=== PATIENT | female | born 1955 | race Caucasian/White ===

== ENCOUNTER 2024-08-31 05:30 | Emergency (ER) | payer MEDICARE, OTHER, SELFPAY ==
[2024-08-31 05:32] VITALS: BP 138/97
[2024-08-31 06:18] VITALS: BMI 23.8
[2024-08-31 06:45] LABS: % Basophils 0.2 % (0-2); % Eosinophils 1.1 % (0-6); % Immature Granulocytes 0.3 % (0-0.5); % Lymphocytes 5.2 % (20.5-51.1); % Monocytes 5.9 % (1.7-9.3); % Neutrophils 87.3 % (42.2-75.2); Absolute Eosinophils 0.1 10^3/uL (0-0.7); Absolute Lymphocytes 0.5 10^3/uL (1.2-3.4); Absolute Monocytes 0.6 10^3/uL (0.1-0.6); Absolute Neutrophils 8.2 10^3/uL (1.4-6.5); Hematocrit 35.5 % (37.0-47.0); Hemoglobin 12.2 g/dL (12.0-16.0); Mean Corp Hgb Conc. 34.4 g/dL (33.0-37.0); Mean Corpuscular Hgb 33.6 pg (27.0-31.0); Mean Corpuscular Volume 97.8 fL (81.0-99.0); Mean Platelet Volume 8.5 fL (7.4-10.4); Nucleated Red Blood Cells % 0 %; Platelet Count 249 10^3/uL (130-400); Red Blood Cell Count 3.63 10^6/uL (4.20-5.40); Red Cell Dist. Width 11.9 % (11.5-14.5); White Blood Cell Count 9.4 10^3/uL (4.8-10.8)
[2024-08-31 06:54] LABS: ALT (SGPT) 21 U/L (0-35); AST (SGOT) 32 U/L (14-36); Albumin 4.4 g/dl (3.5-5.0); Alkaline Phosphatase 64 U/L (38-126); Blood Urea Nitrogen 8 mg/dl (7-17); Calcium 9.8 mg/dl (8.4-10.2); Carbon Dioxide 28 mmol/L (22-30); Chloride 99 mmol/L (98-107); Estimated Creatinine Clearance 72 ml/min; Glucose 128 mg/dl (70-99); Lipase 40 U/L (23-300); Potassium 3.9 mmol/L (3.5-5.1); Sodium 134 mmol/L (135-145); Total Bilirubin 0.8 mg/dl (0.2-1.3); Total Protein 6.7 g/dl (6.3-8.2); eGFR > 60.00
--- NOTE | 2024-08-31 07:38 | ED.GENMED ---
History of Present Illness
General
Chief Complaint: Abdominal Pain
Time Seen by Provider: 08/31/24 07:08
History of Present Illness
History of Present Illness:
69-year-old female presents to the emergency department for evaluation of intractable nausea and vomiting beginning last night. She is 2 days status post right total shoulder replacement performed at [facility]. She was given opiates for pain
control but no antiemetics. Pain is moderate at this time. No fevers or chills
Review of Systems
Review of Systems
Allergies reviewed?: Yes
All Other Systems: ROS reviewed and negative except as documented in HPI and ROS
Phy Exam
Physical Exam
Physical Exam:
GEN: Well appearing, NAD, WDWN
HEENT: Oral mucosa moist, no scleral icterus
Cardiac: Regular rate
Lung: No respiratory distress, no tachypnea
MSK: Aquacel dressing in place over the right shoulder, no obvious erythema
Skin: Good color, no pallor or jaundice, no rashes
Neuro: AO x3, moves all extremities freely
Psych: Calm, cooperative
Course
Orders/Labs/Results
Orders:
Orders
08/31/24 06:16
IV Insert/Care/Rem.- Treatment PRN
08/31/24 06:33
Complete Blood Count/With Diff Urgent
Comprehensive Metabolic Panel Urgent
Lipase Urgent
08/31/24 07:38
0.9% Sodium Chloride 1000 ml [Nss] 1,000 ml IV BOLUS
Ondansetron Injectable [Zofran] 4 mg IV NOW STA
08/31/24 08:39
Oxycodone [Roxicodone] 5 mg PO NOW STA
Abnormal Lab Results
08/31/24
06:33
RBC 3.63 L 10^6/uL
(4.20-5.40)
Hct 35.5 L %
(37.0-47.0)
MCH 33.6 H pg
(27.0-31.0)
Absolute Neuts (auto) 8.2 H 10^3/uL
(1.4-6.5)
Absolute Lymphs (auto) 0.5 L 10^3/uL
(1.2-3.4)
Neutrophils % 87.3 H %
(42.2-75.2)
Lymphocytes % 5.2 L %
(20.5-51.1)
Sodium 134 L mmol/L
(135-145)
Creatinine 0.5 L mg/dL
(0.6-1.0)
Glucose 128 H mg/dl
(70-99)
08/31/24 06:33
08/31/24 06:33
Vital Signs
Initial and Last Documented VS:
Initial Vital Signs
Temp Pulse Resp BP Pulse Ox
98.4 F 92 18 138/97 97
08/31/24 05:32 08/31/24 05:32 08/31/24 05:32 08/31/24 05:32 08/31/24 05:32
Last Documented Vital Signs
Temp Pulse Resp BP Pulse Ox
98.4 F 78 18 115/63 97
08/31/24 05:32 08/31/24 11:34 08/31/24 11:34 08/31/24 11:34 08/31/24 11:34
MDM/Problems Addressed
MDM/Problems Addressed:
Labs reassuring, tolerating PO fluids after antiemetics. Will d/c home on antiemetics
*Critical Care Note
Total Time (30-74mins, 75-104mins- exclusive of procedures): Not Applicable
ED Attending Note
-
Portions of this chart may have been created with voice recognition software.� Occasional wrong word or��sound alike� substitutions may have occurred due to the inherent limitations of voice recognition software.
Discharge Plan
Departure
Patient Disposition: Home (Routine Discharge)
Date of Disposition: 08/31/24
Time of Disposition: 09:58
Patient with high blood pressure during this ER visit?: No
Discharge Problem:
Postoperative nausea and vomiting
Instructions: Nausea and Vomiting, Adult (DC)
Prescriptions:
New
ondansetron 4 mg tablet,disintegrating
4 mg PO TIDPRN PRN (Reason: nausea/vomiting) Qty: 10 0RF
Referrals:
Ankita Taylor DO [Family Provider] -
Interventions
Interventions:
*Risk Screen - Suicide Last Done: 08/31/24 05:32
*General Assessment Last Done: 08/31/24 05:32
*Neglect/Abuse Screening Last Done: 08/31/24 06:18
*ED COVID-19 Vaccine History Last Done: 08/31/24 05:32
ZM-Azryit-Kgjlukyhhf Assessment Last Done: 08/31/24 06:19
Discharge Date and Time
Print Language: DOMINICAN
[2024-08-31] MEDS: ZOFRAN 4 MG IV (07:41)
[2024-08-31] MEDS: NSS 1000 IV (07:41)
[2024-08-31] MEDS: ROXICODONE 5 MG PO (08:58)
[2024-08-31 11:34] VITALS: BP 115/63
== END 2024-08-31 12:00 | disposition home or self-care (01) ==
LOC: EMR 05:30
PROVIDERS: EMERGENCY PHYSICIAN Emergency Medicine; FAMILY PHYSICIAN Internal Medicine
DX: R11.2 Nausea with vomiting, unspecified (principal); Z96.611 Presence of right artificial shoulder joint
CPT/HCPCS: 99283; 96374; 96361; 80053; 83690; 85025